=== PATIENT | female | born 1985 | race Two or more races ===

== ENCOUNTER 2017-09-14 19:14 | Emergency (ER) | payer OTHER ==
[2017-09-14 19:39] LABS: URINE HCG POC HCG NEGATIVE (Negative)
[2017-09-14 20:02] LABS: BILIRUBIN,URINE NEGATIVE (NEG); GLUCOSE,URINE NEGATIVE (NEG); NITRITE,URINE NEGATIVE (NEG); PROTEIN,URINE NEGATIVE (NEG-TRACE); UROBILINOGEN,URINE 0.2 mg/dL (0.2 mg/dL)
[2017-09-14 20:11] LABS: BACTERIA,URINE 0 /HPF (0-FEW); RBC,URINE 0 /HPF (0-2); SQUAMOUS EPITHELIAL CELL,UR OCC /LPF; WBC,URINE 0 /HPF (0-4)
[2017-09-14] MEDS: METOCLOPRAMIDE 10 MG TABLET. PO (20:26)
[2017-09-14] MEDS: diphenhydrAMINE HCL 25 MG CAPSULE PO (20:26)
[2017-09-14] MEDS: IBUPROFEN 800 MG TABLET. PO (21:20)
[2017-09-14] MEDS: CYCLOBENZAPRINE 10 MG TABLET. PO (21:20)
== END 2017-09-14 21:22 | disposition home or self-care (01) ==
LOC: ER 19:14
DX: R51 Headache (principal); R19.7 Diarrhea, unspecified; R11.10 Vomiting, unspecified; G89.29 Other chronic pain; R42 Dizziness and giddiness; M54.9 Dorsalgia, unspecified
CPT/HCPCS: 70450; 81001; 81025; 99285-25; J8597; Q0163

== ENCOUNTER 2021-10-08 19:32 | Emergency (ER) | payer OTHER ==
[~2021-10-08] VITALS: Ht 167.6 cm; Wt 56.8 kg
[~2021-10-08 19:32] MED LIST: CYCL5TAB PO; IBUP-1060 PO; ONDA4TAB10 SL
--- NOTE | 2021-10-08 21:34 | PHYS DOC ---
Past Medical History Past Medical History: No Pertinent History Past Surgical History: No Surgical History Smoking Status: Never Smoker Alcohol Use: None Drug Use: None General Adult HPI: HPI: Patient is a 36 year old female with no significant medical history who presents today with multiple complaints. Patient is complaining of generalized abdominal pain, generalized back pain, nausea, vomiting, fatigue, headache, symptoms have been going on since yesterday. Patient states she works 12-hour shifts and she is very tired. She states the headache was a gradual onset. Denies this being the worst headache in her life. She states she has had similar headaches before. Denies any fever. Denies any chest pain or shortness of breath. Denies any diarrhea. Denies any chance she is . She states she is vaccinated against COVID-19. Review of Systems: Review of Systems: Constitutional: Reports fatigue Eyes: Denies change in visual acuity. [] HENT: Denies nasal congestion or sore throat. [] Respiratory: Denies cough or shortness of breath. [] Cardiovascular: Denies chest pain or edema. [] GI: Reports generalized abdominal pain with nausea and vomiting, denies bloody stools or diarrhea. [] : Denies dysuria. [] Musculoskeletal: Reports generalized back pain Integument: Denies rash. [] Neurologic: Reports headache, denies focal weakness or sensory changes. [] [] Psychiatric: Denies depression or anxiety. [] Heart Score: C/O Chest Pain: N/A Risk Factors: Risk Factors: DM, Current or recent (<one month) smoker, HTN, HLP, family history of CAD, obesity. Risk Scores: Score 0 - 3: 2.5% MACE over next 6 weeks - Discharge Home Score 4 - 6: 20.3% MACE over next 6 weeks - Admit for Clinical Observation Score 7 - 10: 72.7% MACE over next 6 weeks - Early Invasive Strategies Current Medications: Current Medications Medications (Trade) Dose Ordered Sig/Magno Start Time Stop Time Status Last Admin Dose Admin Famotidine (Pepcid Vial) 20 mg 1X ONCE 10/08/21 21:30 10/08/21 21:31 UNV Ondansetron HCl (Zofran) 4 mg 1X ONCE 10/08/21 21:30 10/08/21 21:31 UNV Sodium Chloride 1,000 ml @ 1,000 mls/hr 1X ONCE 10/08/21 21:30 10/08/21 22:29 UNV Allergies: Allergies: Allergies Coded Allergies Type Severity Reaction Last Updated Verified No Known Drug Allergies 09/14/17 No Physical Exam: PE: Constitutional: Well developed, well nourished, no acute distress, non-toxic appearance. [] HENT: Normocephalic, atraumatic, bilateral external ears normal, oropharynx moist, no oral exudates, nose normal. [] Eyes: PERRLA, EOMI, conjunctiva normal, no discharge. [] Neck: Normal range of motion, no tenderness, supple, no stridor. [] Cardiovascular:Heart rate regular rhythm, no murmur [] Lungs & Thorax: Bilateral breath sounds clear to auscultation [] Abdomen: Bowel sounds normal, soft, no tenderness, no masses, no pulsatile masses. [] Skin: Warm, dry, no erythema, no rash. [] Back: No tenderness, no CVA tenderness. [] Extremities: No tenderness, no cyanosis, no clubbing, ROM intact, no edema. [] Neurologic: Alert and oriented X 3, normal motor function, normal sensory function, no focal deficits noted. [] Psychologic: Affect normal, judgement normal, mood normal. [] EKG: EKG: [] Radiology/Procedures: Radiology/Procedures: [] Course & Med Decision Making: Course & Med Decision Making Pertinent Labs and Imaging studies reviewed. (See chart for details) This is a well-appearing 36-year-old female patient presented to the ED today complaining of a headache, fatigue, generalized abdominal pain, nausea, vomiting, generalized back pain, symptoms since yesterday. CBC with no acute findings, CMP with bilirubin of 1.7, LFTs are normal, patient has no tenderness to her abdomen. UA noted for small amount of leukocytes but is contaminated with squamous cells epithelium. Positive for COVID19. Patient was given a liter of fluid in the ED, given Zofran. Discharged to home. Supportive care measures recommended. Provided return precautions. Dragon Disclaimer: Jace Disclaimer: This electronic medical record was generated, in whole or in part, using a voice recognition dictation system. Departure Departure Impression: Primary Impression: Lab test positive for detection of COVID-19 virus Additional Impressions: Headache Qualified Codes: R51.9 - Headache, unspecified Backache Qualified Codes: M54.9 - Dorsalgia, unspecified Abdominal pain Qualified Codes: R10.84 - Generalized abdominal pain Nausea & vomiting Qualified Codes: R11.2 - Nausea with vomiting, unspecified Fatigue Qualified Codes: R53.83 - Other fatigue Disposition: 01 HOME / SELF CARE / HOMELESS Condition: STABLE Referrals: NO PCP (PCP) Follow-up with your primary care doctor in the next 7 days Patient Instructions: Viral Infections, [id number] Additional Instructions: You are positive for COVID-19. Please quarantine yourself for 5 days, rest, push fluids, take Tylenol Motrin for pain or fever. Maintain good hand hygiene. Follow-up with your doctor in 1 to 2 weeks. Wear a mask around other people Scripts Ondansetron (ONDANSETRON ODT) 4 Mg Tab.rapdis 1 TAB PO PRN Q6-8HRS, #16 TAB Prov: BOWEN VENEGAS APRN 10/09/21 BOWEN VENEGAS APRN Oct 08, 2021 21:34
[2021-10-08 21:35] LABS: BASO # 0.1 x10^3/uL (0.0-0.2); BASO % 1 % (0-3); EOS # 0.1 x10^3/uL (0.0-0.7); EOS % 1 % (0-3); HEMATOCRIT 39.6 % (36.0-47.0); HEMOGLOBIN 13.9 g/dL (12.0-15.5); LYMPH # 2.7 x10^3/uL (1.0-4.8); LYMPH % 29 % (24-48); MEAN CORPUSCULAR HEMOGLOBIN 30 pg (25-35); MEAN CORPUSCULAR HGB CONC 35 g/dL (31-37); MEAN CORPUSCULAR VOLUME 86 fL (79-100); MONO # 0.7 x10^3/uL (0.0-1.1); MONO % 7 % (0-9); NEUT # 5.9 x10^3/uL (1.8-7.7); NEUT % 62 % (31-73); PLATELET COUNT 277 x10^3/uL (140-400); RED BLOOD COUNT 4.62 x10^6/uL (3.50-5.40); RED CELL DISTRIBUTION WIDTH 12.9 % (11.5-14.5); WHITE BLOOD COUNT 9.5 x10^3/uL (4.0-11.0)
[2021-10-08 21:47] LABS: CALCIUM 8.7 mg/dL (8.5-10.1); CREATININE 0.6 mg/dL (0.6-1.0); GFR 113.8; POTASSIUM 3.8 mmol/L (3.5-5.1)
[2021-10-08 21:53] LABS: ALBUMIN 4.2 g/dL (3.4-5.0); ALBUMIN/GLOBULIN RATIO 0.9 (1.0-1.7); TOTAL BILIRUBIN 1.7 mg/dL (0.2-1.0); TOTAL PROTEIN 8.7 g/dL (6.4-8.2)
[2021-10-08] MEDS ORDERED: IV NORMAL SALINE 1000ML BAG 1,000 ML IV ONE (22:00)
[2021-10-08] MEDS ORDERED: FAMOTIDINE 20 MG/2 ML VIAL IVP ONE (22:00)
[2021-10-08] MEDS ORDERED: ONDANSETRON PF 4 MG/2 ML VIAL. IVP ONE (22:00)
[2021-10-08 22:04] LABS: INFLUENZA A PATIENT NEGATIVE (NEGATIVE); INFLUENZA B PATIENT NEGATIVE (NEGATIVE)
[2021-10-09 00:31] LABS: BILIRUBIN,URINE NEGATIVE (NEG); CLARITY,URINE CLEAR; COLOR,URINE YELLOW; NITRITE,URINE NEGATIVE (NEG); PH,URINE 7.5 (<5.0-8.0); PROTEIN,URINE NEGATIVE (NEG-TRACE); UROBILINOGEN,URINE 0.2 mg/dL (0.2 mg/dL)
[2021-10-09 00:37] LABS: BARBITURATES NEG (NEG); BENZODIAZEPINES NEG (NEG); CANNABINOIDS NEG (NEG); COCAINE NEG (NEG); METHADONE NEG (NEG); OPIATES NEG (NEG); PHENCYCLIDINE NEG (NEG)
[2021-10-09 00:38] LABS: AMPHETAMINE/METHAMPHETAMINE NEG (NEG)
[2021-10-09 00:39] LABS: BACTERIA,URINE FEW /HPF (0-FEW); RBC,URINE 0 /HPF (0-2)
[2021-10-09] MEDS ORDERED: ONDA4TAB12 PO (01:09)
[2021-10-09 01:30] VITALS: BP 100/62
== END 2021-10-09 01:37 | disposition home or self-care (01) ==
LOC: ER 19:32
DX: U07.1 COVID-19 (principal); R51.9 Headache, unspecified; R11.2 Nausea with vomiting, unspecified; R10.84 Generalized abdominal pain; M54.89 Other dorsalgia
CPT/HCPCS: 36415; 80053; 80307; 81001; 83690; 85025; 87086; 87428; 96361; 96374; 96375; 99285; G0480; J2405; J3490; J7030